=== PATIENT | male | born 1980 | race African-American/Black ===

== ENCOUNTER 2018-05-12 13:57 | Emergency (ER) | payer OTHER ==
[2018-05-12 14:04] VITALS: BP 128/78; PULSE 81; RESP 18; TEMP 97.9
--- NOTE | 2018-05-12 14:11 | ED ---
Skin/Abscess/FB HPI - General Chief complaint: Skin/Abscess/Foreign Body Stated complaint: Bump on back Time Seen by Provider: 05/12/18 14:06 Source: patient, RN notes reviewed Mode of arrival: ambulatory Limitations: no limitations - History of Present Illness Initial comments: 38-year-old male presents emergency Department chief complaint of bump on his back. Patient states that last few days and felt that it got bigger. Patient states mild discomfort no fever, chills, bowel bladder incontinence or retention. He has no history of VRE or MRSA. Patient states that his been applying warm compresses and has noticed an opening at this time. - Related Data Previous Rx's Medication Instructions Recorded Famotidine [Pepcid] 20 mg PO BID 7 Days tablet 11/25/17 Ibuprofen [Motrin] 600 mg PO Q8HR PRN #20 tab 11/25/17 predniSONE 50 mg PO DAILY #5 tablet 11/25/17 Ibuprofen [Motrin] 600 mg PO Q8HR PRN #30 tab 05/12/18 Sulfamethox-Tmp 800-160Mg [Bactrim 1 each PO Q12HR #20 tab 05/12/18 Ds] Allergies Allergy/AdvReac Type Severity Reaction Status Date / Time No Known Allergies Allergy Verified 05/12/18 14:03 Review of Systems ROS Statement: Those systems with pertinent positive or pertinent negative responses have been documented in the HPI. ROS Other: All systems not noted in ROS Statement are negative. Past Medical History Past Medical History: No Reported History History of Any Multi-Drug Resistant Organisms: None Reported Past Surgical History: No Surgical Hx Reported Past Psychological History: No Psychological Hx Reported Smoking Status: Current every day smoker Past Alcohol Use History: Occasional Past Drug Use History: Marijuana General Exam Limitations: no limitations General appearance: alert, in no apparent distress Head exam: Present: atraumatic, normocephalic, normal inspection Eye exam: Present: normal appearance, PERRL, EOMI. Absent: scleral icterus, conjunctival injection, periorbital swelling Respiratory exam: Present: normal lung sounds bilaterally. Absent: respiratory distress, wheezes, rales, rhonchi, stridor Cardiovascular Exam: Present: regular rate, normal rhythm, normal heart sounds. Absent: systolic murmur, diastolic murmur, rubs, gallop, clicks GI/Abdominal exam: Present: soft, normal bowel sounds. Absent: distended, tenderness, guarding, rebound, rigid Skin exam: Present: warm, dry, intact, normal color, other (Lower lumbar region there is a 1 cm erythematous nonfluctuant abscess). Absent: rash Course Vital Signs 05/12/18 14:01 Temperature 97.9 F Pulse Rate 81 Respiratory 18 Rate Blood Pressure 128/78 O2 Sat by Pulse 99 Oximetry Medical Decision Making - Medical Decision Making 38-year-old male presents emergency Department for abscess to his low back. There is no fluctuant area. There is a small opening and will continue warm compresses along with antibiotics. Return parameters were discussed. Patient agrees to plan. Disposition Clinical Impression: Abscess Disposition: HOME SELF-CARE Condition: Stable Instructions (If sedation given, give patient instructions): Abscess (ED) Additional Instructions: Please return to the Emergency Department if symptoms worsen or any other concerns. Prescriptions: Ibuprofen [Motrin] 600 mg PO Q8HR PRN #30 tab PRN Reason: Pain Sulfamethox-Tmp 800-160Mg [Bactrim Ds] 1 each PO Q12HR #20 tab Is patient prescribed a controlled substance at d/c from ED?: No Referrals: Candace Jalloh DO [Primary Care Provider] - 1-2 days Time of Disposition: 14:11
== END 2018-05-12 14:24 | disposition home or self-care (01) ==
LOC: EC 13:57
DX: L02.212 Cutaneous abscess of back [any part, except buttock and flank] (principal); F17.200 Nicotine dependence, unspecified, uncomplicated
CPT/HCPCS: 99283